=== PATIENT | female | born 2000 | race Two or more races ===

== ENCOUNTER 2022-12-13 01:39 | Emergency (ER) | payer OTHER ==
--- NOTE | 2022-12-13 02:12 | ED Physician Documentation ---
History of Present Illness - Stated complaint Stated Complaint: BACK PX/SOA - Chief complaint Chief Complaint: Back Pain - History obtained from History obtained from: Patient - Additonal information Additional information: 22-year-old woman presents with bilateral lower Back pain radiating to the abdomen. She is 1 month s/p vaginal delivery with induction for "borderline preeclampsia" at [facility]. Patient had unremarkable course and has had normal blood pressure throughout and period except for one SBP 148 on the last reading prior to delivery. Patient denies pak, nausea, dysuria, increased frequency. she does state she has had cloudy urine recently but denies hematuria. Review of Systems Constitutional: denies: Fever Eyes: reports: Other (no vision changes) GI: denies: Nausea Musculoskeletal: reports: Back pain Neurologic: denies: Headache PD PAST MEDICAL HISTORY - Allergies Allergies/Adverse Reactions: Allergies Allergy/AdvReac Type Severity Reaction Status Date / Time No Known Drug Allergies Allergy Verified 12/13/22 01:50 PD ED PE NORMAL - Vitals Vital signs reviewed: Yes - General General: Alert and oriented X 3, No acute distress, Well developed/nourished - HEENT HEENT: Atraumatic, PERRL, EOMI - Neck Neck: Supple, no meningeal sign - Cardiac Cardiac: RRR - Respiratory Respiratory: No respiratory distress, Clear bilaterally - Abdomen Abdomen: Non tender, Non distended - Back Back: No CVA TTP - Derm Derm: Normal color, Warm and dry - Extremities Extremities: No deformity - Neuro Neuro: No motor deficit, No sensory deficit - Psych Psych: Normal mood, Normal affect Results - Vitals Vitals: Vital Signs - 24 hr 12/13/22 01:48 Temperature 36.9 C Heart Rate 82 Respiratory 16 Rate Blood Pressure 142/85 H O2 Saturation 97 Oxygen O2 Source Room air - Labs Labs: Laboratory Tests 12/13/22 02:11 Urine Color YELLOW Urine Clarity CLEAR Urine pH 5.5 Ur Specific [place] 1.025 Urine Protein NEGATIVE Urine Glucose (UA) NEGATIVE Urine Ketones NEGATIVE Urine Occult Blood NEGATIVE Urine Nitrite NEGATIVE Urine Bilirubin NEGATIVE Urine Urobilinogen 0.2 (NORMAL) Ur Leukocyte Esterase NEGATIVE Urine RBC 0-5 Urine WBC 0-3 Ur Squamous Epith Cells FEW Squamous Urine Bacteria Rare Urine Culture Comments NOT INDICATED PD Medical Decision Making - ED course ED course: 22yF, 4 weeks s/p induction for "borderline preeclampsia", p/w BL lower back pain radiating to the abdomen. Her vital signs and physical exam were unremarkable with exception of mild blood pressure elevation 142/85. U/a performed was normal. 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 return precautions given. Departure - Departure Disposition: 01 Home, Self Care Clinical Impression: Back pain Condition: Stable Instructions: ED Low Back Pain Injury Comments: You were seen in the ED for low back pain. Your urinalysis was normal. You do have mildly increased blood pressure (142/85) and should have this rechecked at your business job titles or primary care provider's office. Return to the ED for new or worsening symptoms or if you have other concerns.
[2022-12-13 02:17] LABS: BILIRUBIN,URINE NEGATIVE (NEGATIVE); GLUCOSE, URINE (UA) NEGATIVE (NEGATIVE); KETONES,URINE (UA) NEGATIVE (NEGATIVE); LEUKOCYTE ESTERASE, URINE NEGATIVE (NEGATIVE); NITRITE,URINE NEGATIVE (NEGATIVE); OCCULT BLOOD,URINE NEGATIVE (NEGATIVE); PH,URINE 5.5 PH (5.0-7.5); PROTEIN,URINE NEGATIVE (NEGATIVE); UROBILINOGEN,URINE 0.2 (NORMAL) E.U./dL (NORMAL)
[2022-12-13 02:20] LABS: BACTERIA,URINE Rare /HPF (None Seen); CLARITY,URINE CLEAR (CLEAR); RBC,URINE 0-5 /HPF (0-5); SQUAMOUS EPITHELIAL CELL,UR FEW Squamous (<= Few); WBC,URINE 0-3 /HPF (0-5)
[2022-12-13 02:54] VITALS: BP 127/71
== END 2022-12-13 02:53 | disposition home or self-care (01) ==
LOC: ED 01:39
DX: O90.89 Other complications of the puerperium, not elsewhere classified (principal); M54.50 Low back pain, unspecified
CPT/HCPCS: 81001; 87086; 99282; 99283

== ENCOUNTER 2022-12-31 13:40 | Emergency (ER) | payer OTHER ==
--- NOTE | 2022-12-31 14:16 | ED Physician Documentation ---
History of Present Illness - Stated complaint Stated Complaint: CHEST PX - Chief complaint Chief Complaint: Cardiac - Additonal information Additional information: 22-year-old female presents to the emergency department for evaluation of acute shortness of air, chest pain. She is almost 7 weeks . She states about noon she was burping her daughter when she began to feel a tightness in her chest. It hurts every time she takes a deep breath. She has no cough, fevers. No recent travel. She has had some persistent swelling in the right foot since delivering her . She has no calf pain tenderness. No previous history of blood clots or cancer. She is only taking OCPs right now. She is both breast-feeding and formula feeding the baby. Review of Systems Constitutional: denies: Fever Cardiac: reports: Chest pain / pressure, Pedal edema. denies: Palpitations, Calf pain Respiratory: reports: Dyspnea GI: reports: Reviewed and negative : reports: Reviewed and negative PD PAST MEDICAL HISTORY - Past Medical History Past Medical History: No Cardiovascular: None Respiratory: None Neuro: None Endocrine/Autoimmune: None GI: GERD AVID EDITOR: None : None HEENT: None Psych: None Musculoskeletal: None Derm: None - Past Surgical History Past Surgical History: No - Present Medications Home Medications: Ambulatory Orders Medication Instructions Recorded Confirmed Norethindrone 0.35 mg PO DAILY 12/31/22 12/31/22 - Allergies Allergies/Adverse Reactions: Allergies Allergy/AdvReac Type Severity Reaction Status Date / Time No Known Drug Allergies Allergy Verified 12/31/22 13:48 - Social History Does the pt smoke?: No Smoking Status: Never smoker Does the pt drink ETOH?: Yes Does the pt have substance abuse?: No - Immunizations Immunizations are current?: Yes - POLST Patient has POLST: No PD ED PE NORMAL - General General: Alert and oriented X 3, No acute distress, Well developed/nourished - HEENT HEENT: Atraumatic - Neck Neck: Supple, no meningeal sign, No adenopathy - Cardiac Cardiac: RRR, No murmur - Respiratory Respiratory: No respiratory distress, Clear bilaterally - Derm Derm: Normal color, Warm and dry, No rash - Extremities Extremities: No calf tenderness / cord. No: No edema (Right pedal edema. No right calf pain swelling or tenderness noted.) - Neuro Neuro: Alert and oriented X 3, asp developer 2-12 intact Eye Opening: Spontaneous Motor: Obeys Commands Verbal: Oriented GCS Score: 15 Results - Vitals Vitals: Vital Signs - 24 hr 12/31/22 12/31/22 13:48 16:00 Temperature 36.3 C L Heart Rate 80 72 Respiratory 16 23 Rate Blood Pressure 136/78 H 104/53 L O2 Saturation 98 97 Oxygen O2 Source Room air - EKG (time done) 1357 EKG releavant findings:: EKG personally interpreted by author of this note. Relevant findings are: Rate: Rate (enter#) (72) Rhythm: NSR Intervals: Normal [place] QRS: Normal Ischemia: Normal ST segments Compare to prior EKG: Old EKG unavailable Computer interpretation: Agree with computer - Labs Labs: Laboratory Tests 12/31/22 12/31/22 12/31/22 14:15 14:15 14:49 WBC 8.7 RBC 4.99 Hgb 12.6 Hct 39.8 MCV 79.8 L MCH 25.3 L MCHC 31.7 L RDW 13.6 Plt Count 352 MPV 9.9 Neut # (Auto) 5.4 Lymph # (Auto) 2.3 [place] # (Auto) 0.7 Eos # (Auto) 0.2 Baso # (Auto) 0.1 Absolute Nucleated RBC 0.00 Nucleated RBC % 0.0 D-Dimer 300.5 H Sodium 140 Potassium 4.0 Chloride 105 Carbon Dioxide 23 Anion Gap 12.0 BUN 15 Creatinine 0.9 Estimated GFR (MDRD) 77 L Glucose 109 H Calcium 9.1 Total Bilirubin 0.7 AST 34 ALT 28 Alkaline Phosphatase 97 Troponin I High Sens Total Protein 7.6 Albumin 3.7 Globulin 3.9 Albumin/Globulin Ratio 0.9 L Lipase 32 Serum HCG, Qual 12/31/22 12/31/22 14:49 14:49 WBC RBC Hgb Hct MCV MCH MCHC RDW Plt Count MPV Neut # (Auto) Lymph # (Auto) [place] # (Auto) Eos # (Auto) Baso # (Auto) Absolute Nucleated RBC Nucleated RBC % D-Dimer Sodium Potassium Chloride Carbon Dioxide Anion Gap BUN Creatinine Estimated GFR (MDRD) Glucose Calcium Total Bilirubin AST ALT Alkaline Phosphatase Troponin I High Sens < 2.3 L Total Protein Albumin Globulin Albumin/Globulin Ratio Lipase Serum HCG, Qual NEGATIVE - Rads (name of study) cxr Relevant Findings:: Final report received (No acute cardiopulmonary process) right leg US Relevant Findings:: Final report received (No deep vein thrombosis) CT agio chest Relevant Findings:: Final report received (No acute pulmonary embolus. No significant abnormalities seen on the chest) PD Medical Decision Making - ED course Complexity details: reviewed results, re-evaluated patient, considered differential, d/w patient ED course: 22-year-old female who is 6 weeks presents to the emergency department for evaluation of sudden onset pleuritic chest pain. Patient states that she woke up this morning not feeling entirely well but was going about her day when she was burping her infant daughter and she developed sudden pain within the chest making it difficult to breathe and hurting every time she took a deep breath. She does state that since delivering the baby she has had persistent right foot swelling though no calf swelling or leg pain tenderness otherwise. She has an unremarkable past medical history. Takes no prescribed medications other than an OCP. She delivered vaginally without complications. I am today in the emergency department I did obtain a CBC, electrolytes and a D- dimer. Her D-dimer was mildly elevated at 300. There were no other acute findings with the electrolytes. Her EKG was nonischemic. A chest x-ray was without findings to suggest pneumonia, pleural effusion or pneumothorax. Given the status as well as the right foot swelling my differential also included possibility of a deep vein thrombus. Subsequently an ultrasound was obtained and was negative for DVT. Given the mildly elevated D-dimer however a CT angiogram was completed to rule out a PE and was ultimately negative. I reevaluated the patient at the bedside. She continues to endorse pleuritic chest pain but has unremarkable vital signs for age without hypoxia. I suspect that she may have developed pleurisy. A respiratory PCR panel is pending. However given that she is breast-feeding I will avoid steroids in an effort to prevent her milk from drying up. Patient is encouraged to follow closely with her PCP. The usual emergent return precautions for worsening symptoms was discussed Departure - Departure Disposition: 01 Home, Self Care Clinical Impression: Pleuritic chest pain, Elevated d-dimer, Swelling of right foot Condition: Stable Record reviewed to determine appropriate education?: Yes Comments: Romario you are seen today in the emergency department because you began to develop some pain when you take deep breaths this afternoon. We did do an ultrasound of the right leg because you have had persistent swelling in the right foot since delivering your baby. The ultrasound did not show any findings of a deep vein thrombus or clot. We obtained labs today in the emergency department which were all essentially normal with the exception of a mildly elevated D-dimer. Because her D-dimer was elevated we did do an angiogram of the chest to rule out a pulmonary embolism. The CT of your chest is normal without findings to show pneumonia, pneumothorax or pulmonary embolism. As discussed at the bedside it is possible that you have a condition called pleurisy which is a simple inflammation of the lining of the lung. This is typically a self-limiting condition and will usually get better over the course of several days. Because you are breast-feeding I would like to avoid giving you a course of steroids as these can dry up your breastmilk. I recommend that you take ibuprofen 600 mg with food 2-3 times a day or alternate with Tylenol 500 mg also 2-3 times a day. If you find that your symptoms are worsening, you have any fainting episodes, develop any fevers or have severe shortness of air then please return immediately to the ER for second evaluation. We do have a respiratory PCR panel pending on you. You can follow-up these results through the [employer] portal. Please discuss this ED visit with your primary care doctor soon as possible.
[2022-12-31 14:25] LABS: BASOPHILS # (AUTO) 0.1 10^3/uL (0.0-0.1); BASOPHILS % (AUTO) 0.8 %; EOSINOPHILS # (AUTO) 0.2 10^3/uL (0.0-0.7); EOSINOPHILS % (AUTO) 2.5 %; HCT - HEMATOCRIT 39.8 % (37.0-47.0); HGB - HEMOGLOBIN 12.6 g/dL (12.0-16.0); LYMPHOCYTES # (AUTO) 2.3 10^3/uL (1.5-3.5); LYMPHOCYTES % (AUTO) 26.2 %; MEAN CORPUSCULAR HEMOGLOBIN 25.3 pg (27.0-31.0); MEAN CORPUSCULAR HGB CONC 31.7 g/dL (32.0-36.0); MEAN CORPUSCULAR VOLUME 79.8 fL (81.0-99.0); MEAN PLATELET VOLUME 9.9 fL (7.9-10.8); MONOCYTES # (AUTO) 0.7 10^3/uL (0.0-1.0); NEUTROPHILS # (AUTO) 5.4 10^3/uL (1.5-6.6); NEUTROPHILS % (AUTO) 61.8 %; PLT - PLATELET COUNT 352 10^3/uL (130-450); RED BLOOD COUNT 4.99 10^6/uL (4.20-5.40); RED CELL DISTRIBUTION WIDTH 13.6 % (12.0-15.0); WHITE BLOOD COUNT 8.7 x10^3/uL (4.8-10.8)
[2022-12-31 15:12] LABS: ALBUMIN 3.7 g/dL (3.2-5.5); ALBUMIN/GLOBULIN RATIO 0.9 (1.0-2.2); BILIRUBIN,TOTAL 0.7 mg/dL (0.2-1.0); CALCIUM 9.1 mg/dL (8.5-10.3); CREATININE 0.9 mg/dL (0.4-1.0); TOTAL PROTEIN 7.6 g/dL (6.7-8.2)
--- NOTE | 2022-12-31 15:20 | Ultrasound Report ---
PROCEDURE: Duplex Ext Veins Right INDICATIONS: persistent right foot swelling 6 weeks post TECHNIQUE: Real-time imaging, as well as color and pulse Doppler interrogation, were performed of the lower extr emity deep veins from the inguinal ligament to the popliteal fossa. COMPARISON: None. FINDINGS: The deep veins are normally compressible, and free of intraluminal thrombus. Color and pu lse Doppler demonstrate normal phasic intraluminal flow. There is normal augmentation response to di stal compression maneuver. IMPRESSION: Negative for DVT. Reviewed by: Kevin Cespedes MD on 12/31/2022 3:18 PM PDT Approved by: Kevin Cespedes MD on 12/31/2022 3:18 PM PDT Station ID: [id number]
--- NOTE | 2022-12-31 15:21 | XRAY Report ---
PROCEDURE: Chest 1 View X-Ray INDICATIONS: Chest Pain TECHNIQUE: One view of the chest was acquired. COMPARISON: None. FINDINGS: Surgical changes and devices: None. Lungs and pleura: No dense consolidation or pleural effusion. Mediastinum: Mediastinal contours appear normal. Heart size is normal. Bones and chest wall: No suspicious bony lesions. Overlying soft tissues appear unremarkable. IMPRESSION: No acute radiographic abnormality. Reviewed by: Kevin Cespedes MD on 12/31/2022 3:19 PM PDT Approved by: Kevin Cespedes MD on 12/31/2022 3:19 PM PDT Station ID: [id number]
[2022-12-31] MEDS ORDERED: iohexoL-300 100 ML VIAL ONE (15:28)
[2022-12-31 15:36] LABS: HCG,QUALITATIVE BLOOD NEGATIVE
--- NOTE | 2022-12-31 17:29 | CT Report ---
PROCEDURE: ANGIO CHEST W/WO INDICATIONS: 6 weeks PP, pleuritic chest pain; elevated d-dim; CONTRAST: 80mL Omni 300 TECHNIQUE: After the administration of intravenous contrast, 2 mm axial images were acquired from the pulmonary apices to the posterior costophrenic angles during the arterial phase. In addition, 1 mm lung kernel and 5 mm soft tissue kernel reconstructions were performed. 3-dimensional coronal oblique maximum int ensity projection (MIP) reformats, 8 mm axial MIP, and 5 mm coronal and sagittal MPR reformats were t hen performed through the thorax. For radiation dose reduction, the following was used: automated exp osure control, adjustment of mA and/or kV according to patient size. COMPARISON: Chest radiograph 12/31/2022 FINDINGS: Image quality: Excellent. Large vessels: No filling defects within the opacified pulmonary arteries, accounting for motion and contrast timing. No evidence of acute aortic syndrome or aortic aneurysm. Lungs and pleura: No consolidation. Mild bibasilar atelectasis. No pleural effusions. No pneumothora x. No suspicious pulmonary nodules which require follow up. Mediastinum: Heart size is normal. No pericardial effusion. No large vessel abnormality. No mediastin al adenopathy by size criteria. Thymic tissue is likely within normal limits given age and recent po stpartum status. Chest wall and lower neck: Thyroid is unremarkable. No axillary or supraclavicular adenopathy by size . Bones: No aggressive osseous abnormality. Upper Abdomen: Unremarkable. IMPRESSION: No acute pulmonary embolus. No significant abnormality is seen in the chest. Reviewed by: Nba Lundberg MD on 12/31/2022 5:28 PM PDT Approved by: Nba Lundberg MD on 12/31/2022 5:28 PM PDT Station ID: [id number]
[2022-12-31 17:44] VITALS: BP 120/72
[2022-12-31] MEDS ORDERED: iohexoL-300 100 ML VIAL IVP ONE (18:10)
[2022-12-31 18:32] LABS: B. PARAPERTUSSIS- RESP PCR PAN NOT DETECTED; B. PERTUSSIS- RESP PCR PANEL NOT DETECTED; C. PNEUMONIAE- RESP PCR PANEL NOT DETECTED; CORONAVIRUS 229E-RESP PCR NOT DETECTED; CORONAVIRUS HKU1-RESP PCR NOT DETECTED; CORONAVIRUS NL63-RESP PCR NOT DETECTED; CORONAVIRUS OC43-RESP PCR NOT DETECTED; HUMAN METAPNEUMOVIRUS NOT DETECTED; INFLUENZA A- RESP PCR PANEL NOT DETECTED; INFLUENZA B - RESP PCR PANEL NOT DETECTED; M. PNEUMONIAE- RESP PCR PANEL NOT DETECTED; PARAINFLUENZA VIRUS 1 NOT DETECTED; PARAINFLUENZA VIRUS 2 NOT DETECTED; PARAINFLUENZA VIRUS 3 NOT DETECTED; PARAINFLUENZA VIRUS 4 NOT DETECTED; RHINOVIRUS/ENTEROVIRUS NOT DETECTED; RSV- RESP PCR PANEL NOT DETECTED; SARS-CoV-2 -RESP PCR PANEL NOT DETECTED
== END 2022-12-31 17:43 | disposition home or self-care (01) ==
LOC: ED 13:40
DX: R07.89 Other chest pain (principal); M79.89 Other specified soft tissue disorders; R79.89 Other specified abnormal findings of blood chemistry; Z20.822 Contact with and (suspected) exposure to COVID-19
CPT/HCPCS: 36415; 71045; 71275; 80053; 83690; 84484; 84703; 85025; 85379; 87633; 93005; 93971; 99283; 99284; Q9967

== ENCOUNTER 2024-02-09 08:39 | Outpatient (CLI) | payer OTHER ==
--- NOTE | 2024-02-09 14:28 | Ultrasound Report ---
PROCEDURE: Abdomen Limited INDICATIONS: HEPATOMEGALY TECHNIQUE: Real-time focused scanning was performed of the abdomen, with image documentation. COMPARISONS: CTA chest 12/31/2022. FINDINGS: Liver: Measures 15.5 cm. Heterogeneous echotexture. Gallbladder: No gallstones, sludge, wall thickening or pericholecystic edema. Biliary ducts: Intrahepatic bile ducts are non-dilated. Extrahepatic bile duct caliber measures 3 m m. Normal is 6-7 mm or less in diameter, or 10 mm or less post-cholecystectomy. Pancreas: Visualized portions of the pancreas are sonographically normal. Right kidney: Normal in size and echotexture. Right kidney measures 9.9 cm long. No hydronephrosis o r nephrolithiasis. No solid masses. No complex renal cystic lesions which require follow-up. IVC: Intrahepatic inferior vena cava is patent. Miscellaneous: No free abdominal fluid. IMPRESSION: 1. Increased echogenicity of the hepatic parenchyma. This is most commonly seen in hepatic steatosis. Other forms of hepatocellular disease could have a similar appearance. Liver is within normal limits in size. 2. No acute cholecystitis. No gallstones. Reviewed by: Jeanmarie Clark MD on 02/09/2024 2:26 PM PDT Approved by: Jeanmarie Clark MD on 02/09/2024 2:26 PM PDT Station ID: [id number]
== END 2024-02-09 08:40 | disposition home or self-care (01) ==
LOC: DI 08:39
PROVIDERS: ATTEND Internal Medicine
DX: R16.0 Hepatomegaly, not elsewhere classified (principal)